=== PATIENT | female | born 1980 | race Caucasian/White ===

== ENCOUNTER 2017-08-04 14:51 | Emergency (ER) | payer OTHER ==
[2017-08-04] MEDS ORDERED: ONDANSETRON 4 MG/2 ML VIAL ONE (15:07)
[2017-08-04] MEDS ORDERED: fentaNYL 100 MCG/2 ML INJ IVP ONE (15:11)
[2017-08-04] MEDS ORDERED: NS 1,000 ML IV ONE ×2 (15:11→17:51)
[2017-08-04] MEDS ORDERED: ONDANSETRON 4 MG/2 ML VIAL IVP ONE ×2 (15:11→17:44)
--- NOTE | 2017-08-04 15:13 | EDPHY ---
H & P Time Seen by Provider: 08/04/17 15:04 HPI/ROS: CHIEF COMPLAINT: Severe right-sided back pain HISTORY OF PRESENT ILLNESS: Started yesterday, in her right flank. Had a massage and she thought it felt a little better. Today got much worse and was severely worse 2 hr prior to arrival. Radiates around to the anterior abdomen and not changed with position or oral intake. Not associated with urinary symptoms or fever or recent injury or trauma. Does have associated vomiting. Symptoms are severe currently. REVIEW OF SYSTEMS: Eye: no change in vision ENT: no sore throat Cardiac: no chest pain or syncope Pulmonary: no cough or SOB Abdomen: HPI Musculoskeletal: no back pain Skin: no rash Neuro: no headache Constitutional: no fever : no urinary symptoms A comprehensive 10 point review of systems is otherwise negative aside from elements mentioned in the history of present illness. PAST MEDICAL HISTORY: Ovarian cyst Family history negative for renal colic Social history: Nonsmoker 1620: 122/67 General Appearance: Alert and conversant, cooperative. Squirming around on the bed. Eyes: No scleral icterus. ENT, Mouth: Normal mucous membranes. Respiratory: Normal respiratory effort, breath sounds equal, lungs are clear to auscultation. Cardiovascular: Regular rate and rhythm. Gastrointestinal: Abdomen is soft and non tender. No McBurney's point tenderness. Neurological: Alert, face symmetric, normal motor and sensory in extremities. Skin: Warm and dry, no rashes. No zoster. Musculoskeletal: No peripheral edema. Psychiatric: Not agitated. Emergency Department course/MDM: Suspicion for renal colic. Fentanyl 100 mcg IV and Zofran 4 mg IV. Labs to include urinalysis test, retroperitoneal ultrasound; discussed ultrasound would be less likely able to show stone or exact size or position, but advantage of no ionizing radiation compared to CT, consented. 1530: additional 1mg IV dilaudid. 1620: Ultrasound per Dr. hui shows hydronephrosis on the right with jets present, consistent with acute renal colic on the right side. This would be consistent with her sudden onset of unilateral pain, microscopic hematuria, physical exam without rebound or guarding. Results discussed, comfortable now. Toradol 15 mg IV, Flomax discussed and consented. Plan to observe, patient voices concern about increased pain when the Dilaudid wears off. 1745: 4/10 pain, nausea; 100mg IV lidocaine and repeat 4mg Iv zofran. 1820: Feels better, would like to wait until 7:00 p.m. Admission was discussed and offered for pain control; declines at this time. 184: I am informed by the patient's nurse that she has recurrent severe pain, Dilaudid ordered but when I went to examine her the pain had completely resolved and she declined pain medication. 1900: wants to go home at this time, comfortable. Declines admission, which I think is reasonable. Smoking Status: Light smoker Constitutional: Initial Vital Signs Temperature (C) 36.9 C 08/04/17 14:54 Heart Rate 79 08/04/17 14:54 Respiratory Rate 24 H 08/04/17 14:54 O2 Sat (%) 100 08/04/17 14:54 O2 Delivery Mode Room Air O2 (L/minute) 2 Allergies/Adverse Reactions: No Known Allergies Allergy (Unverified 04/25/11 10:51) Home Medications: Medication Instructions Recorded Acyclovir 400 mg PO 5XD 7 Days tablet 04/25/11 NO HOME MEDICATIONS 04/25/11 Petrolatum,White [Refresh 1 drop RTEYE DAILY #0 ointtube 04/25/11 Lacrilube] Prednisone 60 mg PO DAILY 10 Days tablet 04/25/11 Tamsulosin HCl [Flomax 0.4 MG (*)] 0.4 mg PO DAILY #10 cap 08/04/17 oxyCODONE/APAP 5/325 [Percocet] 1 - 2 tab PO Q4-6PRN PRN #13 tab 08/04/17 Medical Decision Making - Diagnostics Imaging Results: Imaging Impressions Abdomen/Pelvis Ultrasound 08/04/17 15:11 Impression: Mild-moderate right-sided hydronephrosis suggesting distal obstruction. Given visualization of bilateral bladder jets, obstruction is presumably partial or intermittent. Findings were discussed with Dr. Gibson in the emergency department at 1621 hours 08/04/2017 Imaging: Discussed imaging studies w/ vocational coordinator Radiologist Differential Diagnosis: Differential considered including but not limited to nerve root problem, renal colic, UTI, aortic aneurysm, ovarian cyst or torsion, appendicitis. - Data Points Laboratory Results: Laboratory Results 08/04/17 15:15 08/04/17 15:11 03/26/18 03/26/18 03/26/18 16:00 15:15 15:15 WBC 12.31 10^3/uL H 10^3/uL (3.80-9.50) RBC 5.05 10^6/uL 10^6/uL (4.18-5.33) Hgb 14.7 g/dL g/dL (12.6-16.3) Hct 43.4 % % (38.0-47.0) MCV 85.9 fL fL (81.5-99.8) MCH 29.1 pg pg (27.9-34.1) MCHC 33.9 g/dL g/dL (32.4-36.7) RDW 12.4 % % (11.5-15.2) Plt Count 252 10^3/uL 10^3/uL (150-400) MPV 9.9 fL fL (8.7-11.7) Neut % (Auto) 72.3 % % (39.3-74.2) Lymph % (Auto) 20.8 % % (15.0-45.0) [place] % (Auto) 5.0 % % (4.5-13.0) Eos % (Auto) 0.6 % % (0.6-7.6) Baso % (Auto) 0.8 % % (0.3-1.7) Nucleat RBC Rel Count 0.0 % % (0.0-0.2) Absolute Neuts (auto) 8.90 10^3/uL H 10^3/uL (1.70-6.50) Absolute Lymphs (auto) 2.56 10^3/uL 10^3/uL (1.00-3.00) Absolute Monos (auto) 0.61 10^3/uL 10^3/uL (0.30-0.80) Absolute Eos (auto) 0.08 10^3/uL 10^3/uL (0.03-0.40) Absolute Basos (auto) 0.10 10^3/uL 10^3/uL (0.02-0.10) Absolute Nucleated RBC 0.00 10^3/uL 10^3/uL (0-0.01) Immature Gran % 0.5 % % (0.0-1.1) Immature Gran # 0.06 10^3/uL 10^3/uL (0.00-0.10) Sodium Potassium Chloride Carbon Dioxide Anion Gap BUN Creatinine Estimated GFR Glucose Calcium Beta HCG, Qual NEGATIVE Urine Color YELLOW Urine Appearance HAZY Urine pH 6.0 (5.0-7.5) Ur Specific [place] 1.018 (1.002-1.030) Urine Protein 1+ H (NEGATIVE) Urine Ketones 2+ H (NEGATIVE) Urine Blood 3+ H (NEGATIVE) Urine Nitrate NEGATIVE (NEGATIVE) Urine Bilirubin NEGATIVE (NEGATIVE) Urine Urobilinogen NEGATIVE EU EU (0.2-1.0) Ur Leukocyte Esterase NEGATIVE (NEGATIVE) Urine RBC 50-182 /hpf H /hpf (0-3) Urine WBC 15-25 /hpf H /hpf (0-3) Ur Epithelial Cells TRACE /lpf /lpf (NONE-1+) Urine Mucus TRACE /lpf /lpf (NONE-1+) Urine Glucose NEGATIVE (NEGATIVE) 08/04/17 15:11 WBC RBC Hgb Hct MCV MCH MCHC RDW Plt Count MPV Neut % (Auto) Lymph % (Auto) [place] % (Auto) Eos % (Auto) Baso % (Auto) Nucleat RBC Rel Count Absolute Neuts (auto) Absolute Lymphs (auto) Absolute Monos (auto) Absolute Eos (auto) Absolute Basos (auto) Absolute Nucleated RBC Immature Gran % Immature Gran # Sodium 141 mEq/L mEq/L (135-145) Potassium 3.4 mEq/L L mEq/L (3.5-5.2) Chloride 105 mEq/L mEq/L (97-110) Carbon Dioxide 18 mEq/l L mEq/l (22-31) Anion Gap 18 mEq/L H mEq/L (8-16) BUN 14 mg/dL mg/dL (7-23) Creatinine 0.8 mg/dL mg/dL (0.6-1.0) Estimated GFR > 60 Glucose 134 mg/dL H mg/dL (70-100) Calcium 9.5 mg/dL mg/dL (8.5-10.4) Beta HCG, Qual Urine Color Urine Appearance Urine pH Ur Specific [place] Urine Protein Urine Ketones Urine Blood Urine Nitrate Urine Bilirubin Urine Urobilinogen Ur Leukocyte Esterase Urine RBC Urine WBC Ur Epithelial Cells Urine Mucus Urine Glucose Medications Given: Discontinued Medications Fentanyl (Sublimaze) 100 mcg IVP EDNOW ONE Stop: 08/04/17 15:12 Last Admin: 08/04/17 15:13 Dose: 100 mcg Hydromorphone HCl (Dilaudid) 1 mg IVP EDNOW ONE Stop: 08/04/17 15:32 Last Admin: 08/04/17 15:35 Dose: 1 mg Sodium Chloride (Ns) 1,000 mls @ 0 mls/hr IV EDNOW ONE; Wide Open PRN Reason: Protocol Stop: 08/04/17 15:12 Last Admin: 08/04/17 15:13 Dose: 1,000 mls Sodium Chloride (Ns) 1,000 mls @ 0 mls/hr IV EDNOW ONE; Wide Open PRN Reason: Protocol Stop: 08/04/17 17:52 Last Admin: 08/04/17 18:02 Dose: 1,000 mls Ketorolac Tromethamine (Toradol) 15 mg IVP EDNOW ONE Stop: 08/04/17 16:43 Last Admin: 08/04/17 16:50 Dose: 15 mg Ondansetron HCl (Zofran) 4 mg IVP EDNOW ONE Stop: 08/04/17 15:12 Last Admin: 08/04/17 15:13 Dose: 4 mg Ondansetron HCl (Zofran) 4 mg IVP EDNOW ONE Stop: 08/04/17 17:45 Last Admin: 08/04/17 17:48 Dose: 4 mg Ondansetron HCl (Zofran Odt 4 Mg Prepack#2) 1 btl TAKEHOME EDNOW ONE Stop: 08/04/17 18:22 Last Admin: 08/04/17 19:08 Dose: 1 btl Oxycodone/Acetaminophen (Percocet 5/325mg Prepack#4) 1 btl TAKEHOME EDNOW ONE Stop: 08/04/17 18:22 Last Admin: 08/04/17 19:07 Dose: 1 btl Tamsulosin HCl (Flomax) 0.4 mg PO EDNOW ONE Stop: 08/04/17 16:43 Last Admin: 08/04/17 16:51 Dose: 0.4 mg Departure - Departure Disposition: Home, Routine, Self-Care Clinical Impression: Renal colic on right side Condition: Good Instructions: Renal Colic (ED) Additional Instructions: Drink plenty of fluids. Oral ibuprofen 600 mg every 8 hr as needed for the next 5 days for pain. Strain urine and bring any stone to follow-up urologist. Return for worsening or severe pain or fever Referrals: Adelaida Schwartz MD [Medical Doctor] - 3-4 days, if not improved (this week in the office) Prescriptions: oxyCODONE/APAP 5/325 [Percocet] 1 - 2 tab PO Q4-6PRN PRN #13 tab PRN Reason: Pain Tamsulosin HCl [Flomax 0.4 MG (*)] 0.4 mg PO DAILY #10 cap
[2017-08-04 15:17] LABS: PLATELET COUNT 252 10^3/uL (150-400)
[2017-08-04] MEDS ORDERED: HYDROmorphONE/DILAUDID 2 MG/ML INJ IVP ONE ×2 (15:31→18:40)
[2017-08-04] MEDS ORDERED: KETOROLAC 30 MG/1 ML SDV IVP ONE (16:42)
[2017-08-04] MEDS ORDERED: TAMSULOSIN HCL 0.4 MG CAP PO ONE (16:42)
[2017-08-04] MEDS ORDERED: LIDOCAINE 1% 100 MG in NS 100 ML IV ONE (17:44)
[2017-08-04] MEDS ORDERED: ONDANSETRON 4MG PREPACK#2 BTL TAKEHOME ONE (18:21)
[2017-08-04] MEDS ORDERED: OXYCODONE/APAP 5/325MG PREPACK#4 BTL TAKEHOME ONE (18:21)
[2017-08-04 19:12] VITALS: BP 123/81
== END 2017-08-04 19:12 | disposition home or self-care (01) ==
DX: N23 Unspecified renal colic (principal); E86.9 Volume depletion, unspecified; F17.200 Nicotine dependence, unspecified, uncomplicated
CPT/HCPCS: 96374; J1170; J1885; J2405; J3010